=== PATIENT | male | born 1975 | race Caucasian/White ===

== ENCOUNTER 2017-05-04 12:20 | Emergency (ER) | payer BC, SELFPAY ==
[2017-05-04 14:00] VITALS: BP 152/97; PULSE 97; RESP 16; TEMP 37.1; O2SAT 95; BMI 38.7
[2017-05-04 14:29] LABS: Strep Scrn Group A (Rapid) Negative (Negative)
--- NOTE | 2017-05-04 16:39 | HMH.EDGENADL ---
ED Disposition Clinical Impression: Upper respiratory disease Disposition: Home, Self-Care Condition on Discharge: Good Instructions: Acute Bronchitis Prescriptions: Azithromycin [Z-Bravo 250mg Tab] 250 mg PO UD DOSE PK #6 tab Referrals: Mango Ryder [Primary Care Provider] - - Critical Care Critical Care Time: No Attestation: On 05/04/17, the high probability of a clinically significant, sudden or life threatening deterioration of the following system(s) required my full and direct attention, intervention and personal management. The time I documented below is in addition to time spent performing reported procedures but includes the following listed in this critical care notation. Medical Decision Making - Medical Records Medical records reviewed: Yes: I reviewed the patient's medical records. - Nas Inquiry Pt receiving controlled substance: No Nas was queried for this patient: No Vital Signs: 05/04/17 14:00 05/04/17 16:54 Temperature 98.7 F Temperature Source Oral Pulse Rate [Right Brachial] 97 H Respiratory Rate 16 Blood Pressure [Right Arm] 152/97 Blood Pressure Mean [Right Arm] 115 Blood Pressure Source [Right Arm] Automatic Cuff Blood Pressure Position [Right Arm] Sitting 02 Sat by Pulse Oximetry 95 Oxygen Delivery Method Room Air Room Air - Lab Data Lab Results 05/04/17 14:07: Group A Strep Rapid Negative 05/04/17 14:07: Influenza Type A Ag Negative, Influenza Type B Ag Negative Orders (Tests/Meds): ED MEDICATIONS Discontinued Medications Generic Name Dose Route Start Last Admin Trade Name Freq PRN Reason Stop Dose Admin Acetaminophen 1,000 mg 05/04/17 14:18 05/04/17 14:30 Tylenol 500mg Tablet PO 05/04/17 14:19 1,000 mg ONCE ONE Administration General Adult HPI - General Chief complaint: Headache Stated complaint: sore throat Time Seen by Provider: 05/04/17 12:25 Mode of Arrival: Ambulatory Limitations: No Limitations Description of Symptoms (Recalled from ER Triage Doc. by RN): head ache, sore throat, cough - Related Data Previous Rx's Medication Instructions Recorded Azithromycin [Z-Bravo 250mg Tab] 250 mg PO UD DOSE PK #6 tab 05/04/17 Allergies Allergy/AdvReac Type Severity Reaction Status Date / Time Penicillins [PENICILLINS] Allergy Severe Swelling Verified 05/04/17 14:06 of Lip/Tongue/Throat H History - Hepatitis A Screen Attestation statement:: This patient has been screened for Hepatitis A risk factors. I have reviewed the patient's past medical history: Yes ROS Obtained: Yes All systems reviewed & no additional complaints Physical Exam - General General appearance: alert - Head Head exam: atraumatic - Respiratory Respiratory exam: Present: normal lung sounds bilaterally - Cardiovascular Cardiovascular exam: Present: regular rate, normal rhythm - Neurological Exam Neurological exam: Present: alert, oriented X3, normal gait, motor sensory deficit
== END 2017-05-04 16:57 | disposition home or self-care (01) ==
PROVIDERS: Emergency Provider Family Medicine; PCP Family Medicine
DX: J20.9 Acute bronchitis, unspecified (principal)
CPT/HCPCS: 87275; 87276; 87430; 99283

== ENCOUNTER 2020-11-18 17:47 | Emergency (ER) | payer BC, SELFPAY ==
[2020-11-18 17:56] VITALS: BMI 36.2
--- NOTE | 2020-11-18 17:57 | XR_ITS ---
PROCEDURE INFORMATION: Exam: XR Right Ribs with PA Chest Exam date and time: 11/18/2020 5:57 PM Age: 44 years old Clinical indication: Injury or trauma; Fall; Rib area; Blunt trauma (contusions or hematomas); Additional info: Right anterior rib pain directly below right breast, fall x 3 days ago TECHNIQUE: Imaging protocol: XR Right ribs with PA chest. Views: 3 views COMPARISON: CR CXR CHEST(2 VIEWS-NOT PORTABLE) 03/15/2017 6:16 PM FINDINGS: Lungs: Unremarkable. No consolidation. Tiny calcified nodule again seen in the right apex. Pleural spaces: Unremarkable. No pleural effusion. No pneumothorax. Heart/Mediastinum: Unremarkable. No cardiomegaly. Bones/joints: No displaced fracture IMPRESSION: No acute findings.
[2020-11-18 18:09] VITALS: BP 135/78; PULSE 81; RESP 81; TEMP 36.8; O2SAT 99; BMI 36.2
--- NOTE | 2020-11-18 18:56 | HMH.EDUTC ---
[facility] [place] Disposition Clinical Impression: Fall Qualifiers: Encounter type: initial encounter Qualified Code(s): W19.XXXA - Unspecified fall, initial encounter Contusion of rib on right side Qualifiers: Encounter type: initial encounter Qualified Code(s): S20.211A - Contusion of right front wall of thorax, initial encounter Disposition: Home, Self-Care Condition on Discharge: Good Instructions: DI for Rib Contusion Additional Instructions: Use the incentive spirometer 10 times every 2 hours while you are awake for the next week. Take the prescribed ibuprofen for pain. The muscle relaxer will make you drowsy, so don't drive or operate heavy machinery after taking it. Follow up with your regular doctor. GO TO THE ER FOR ANY WORSENING SYMPTOMS OR CONCERNS, ESPECIALLY ANY WORSENING SHORTNESS OR BREATH, FEVER, OR WORSENING PAIN. Prescriptions: Ibuprofen [Ibuprofen 800mg Tablet] 800 mg PO Q8HP PRN #30 tab PRN Reason: Moderate Pain Transmission Status: Received by ERNESTO HUITRON 410 Cyclobenzaprine HCl [Cyclobenzaprine 10mg Tab] 10 mg PO BIDP PRN #20 tab PRN Reason: Muscle Spasm Transmission Status: Received by ERNESTO HUITRON 410 Referrals: Nunu Anna APRN [Primary Care Provider] - Forms: Work/School Release Time of Disposition: 19:01 Medical Decision Making - Medical Records Medical records reviewed: No: I reviewed the patient's medical records. - Nas Inquiry Pt receiving controlled substance: No Vital Signs: 11/18/20 18:09 11/18/20 18:58 Temperature 98.2 F 98 F Temperature Source Temporal Artery Scan Pulse Rate 81 Pulse Rate [Left] 81 Respiratory Rate 81 H 16 Blood Pressure 135/78 Blood Pressure [Right Arm] 135/78 Blood Pressure Mean [Right Arm] 97 02 Sat by Pulse Oximetry 99 - Radiology Data #1 Image(s): Chest, Other (ribs) Image Reviewed: Yes I reviewed the patient's radiology image, Yes I have reviewed radiologist's interpretation Preliminary Findings: No Fracture Seen PROCEDURE INFORMATION: Exam: XR Right Ribs with PA Chest Exam date and time: 11/18/2020 5:57 PM Age: 44 years old Clinical indication: Injury or trauma; Fall; Rib area; Blunt trauma (contusions or hematomas); Additional info: Right anterior rib pain directly below right breast, fall x 3 days ago TECHNIQUE: Imaging protocol: XR Right ribs with PA chest. Views: 3 views COMPARISON: CR CXR CHEST(2 VIEWS-NOT PORTABLE) 03/15/2017 6:16 PM FINDINGS: Lungs: Unremarkable. No consolidation. Tiny calcified nodule again seen in the right apex. Pleural spaces: Unremarkable. No pleural effusion. No pneumothorax. Heart/Mediastinum: Unremarkable. No cardiomegaly. Bones/joints: No displaced fracture IMPRESSION: No acute findings. [facility] [place] HPI - General Stated complaint: AO 07/ fell injured R Ribs Time Seen by Provider: 11/18/20 18:56 Mode of Arrival: Ambulatory Source of Information: Patient Limitations: No Limitations Description of Symptoms (Recalled from Triage Doc. by RN): pt was walking up a muddy incline on . night and fell landing on his chest. pt is c/o of R rib pain that is worse today than the other days. sharp pain 10/10 when coughing or sneezing. HEENT Symptoms (Recalled from RN notes): No Resp Symptoms (Recalled from RN notes): No Skin Symptoms (Recalled from RN notes): No MS Symptoms (Recalled from RN notes): Yes (R rib pain) Functional Status (Recalled from RN notes): na - History of Present Illness Provider Complaint: He states that he slipped while fishing and came down right on his chest. This occured yesterday. Since then he has had right rib pain and soreness that is worse when he coughs or deep breathes. He denies any shortness of breath or additional injuries or complaints. - Related Data Previous Rx's Medication Instructions Recorded Azithromycin [Z-Bravo 250mg
[2020-11-18 18:58] VITALS: BP 135/78; PULSE 81; RESP 16; TEMP 36.6
== END 2020-11-18 19:11 | disposition home or self-care (01) ==
PROVIDERS: Emergency Provider Nurse Practitioner Family; PCP Nurse Practitioner
DX: S20.211A Contusion of right front wall of thorax, initial encounter (principal); W17.81XA Fall down embankment (hill), initial encounter; Y92.89 Other specified places as the place of occurrence of the external cause; Z88.0 Allergy status to penicillin
CPT/HCPCS: 71101; 99202; G0463